=== PATIENT | male | born 1990 | race Caucasian/White ===

== ENCOUNTER 2023-10-09 02:20 | Emergency (ER) | payer OTHER ==
[~2023-10-09] VITALS: Ht 175.2 cm; Wt 63.5 kg
[~2023-10-09 02:20] MED LIST: ANAPROX DS550 MG PO; ATARAX25 MG PO; BACTRIM DS 8001 TA1 PO; CEPHALEXIN500 M1 PO; CLINDAMYCIN HC300 MG PO; DARVOCET N 1001 TAB PO; KEFLEX500 MG PO; KENALOG0.1% TP; NKHM PO; PREDNICOT20 MG PO; TOBREX OPHTH S2.5 ML OPH; ULTRAM50 MG PO; VISTARIL25 M1 PO
== END 2023-10-09 04:59 | disposition short-term general hospital (02) ==
LOC: ED 02:20
DX: S43.015A Anterior dislocation of left humerus, initial encounter (principal); Z79.2 Long term (current) use of antibiotics; X50.1XXA Overexertion from prolonged static or awkward postures, initial encounter; Y93.89 Activity, other specified; Y92.89 Other specified places as the place of occurrence of the external cause; Y99.8 Other external cause status